=== PATIENT | female | born 1955 | race Caucasian/White ===

== ENCOUNTER 2021-09-05 20:52 | Emergency (ER) | payer MEDICAID, OTHER ==
[~2021-09-05] VITALS: Ht 160 cm; Wt 90.7 kg
[2021-09-05 20:52] VITALS: BP 169/79
--- NOTE | 2021-09-05 20:55 | NUR ---
PT BIBA BLS ER BED 12
--- NOTE | 2021-09-05 20:55 | NUR ---
66 YO F BIBA FROM [facility] S/P MECHANICAL FALL. - LOC. C/O RT ARM/LEG AND LT ANKLE PAIN. PT'S LEFT ANKLE IS SWOLLEN, LIMITED ROM D/T PAIN. PT HAD AN EPISODE OF VOMITING, RECEIVED 4MG ODT ON ROUTE PER EMT. BS 115. ABRASION TO RT KNEE. IV TO LEFT AC 20 G PRESENT STARTED BY MEDIC. MEDHX- NONE ALLX- PCN
--- NOTE | 2021-09-05 21:14 | NUR ---
AT BEDSIDE EXAMINING PT.
[2021-09-05] MEDS ORDERED: MORPHINE SULFATE 4 MG/ML SYR IM ONE (21:25)
--- NOTE | 2021-09-05 21:57 | NUR ---
RAD AT BEDSIDE
--- NOTE | 2021-09-05 22:04 | NUR ---
PT TAKEN TO CT VIA W/C.
[2021-09-05] MEDS ORDERED: NAPR-54 PO (22:40)
[2021-09-05] MEDS ORDERED: CYCL-711 PO (22:40)
[2021-09-05 23:05] VITALS: BP 169/79
--- NOTE | 2021-09-05 23:05 | NUR ---
Patient discharged with v/s stable. Written and verbal after care instructions given and explained. Patient alert, oriented and verbalized understanding of instructions. Ambulatory with to car. All questions addressed prior to discharge. ID band removed. Patient advised to follow up with PMD. Rx of NAPROSYN AND FLEXARIL given. Patient educated on indication of medication including possible reaction and side effects. Opportunity to ask questions provided and answered.
== END 2021-09-05 23:05 | disposition home or self-care (01) ==
LOC: MED 20:52
DX: S93.402A Sprain of unspecified ligament of left ankle, initial encounter (principal); S43.401A Unspecified sprain of right shoulder joint, initial encounter; S53.401A Unspecified sprain of right elbow, initial encounter; S06.9X1A Unspecified intracranial injury with loss of consciousness of 30 minutes or less, initial encounter; W18.09XA Striking against other object with subsequent fall, initial encounter; Y93.01 Activity, walking, marching and hiking; Y92.89 Other specified places as the place of occurrence of the external cause; Y99.0 Civilian activity done for income or pay
CPT/HCPCS: 29515; 70450; 72125; 73030; 73080; 73562; 73630; 90471; 90715; 96372; 99284; J2270